=== PATIENT | female | born 1940 | race Caucasian/White ===

== ENCOUNTER 2023-03-20 10:44 | Emergency (ER) | payer MEDICARE, MEDICAID ==
[~2023-03-20] VITALS: Ht 154.9 cm; Wt 66.4 kg
[2023-03-20 11:02] VITALS: BP 121/67
[2023-03-20] MEDS ORDERED: azithromycin 250mg tablet PO ONE (12:20)
[2023-03-20] MEDS ORDERED: AZIT250T2 PO (13:06)
[2023-03-20] MEDS ORDERED: GUAI118S13 PO (13:06)
== END 2023-03-20 13:39 | disposition home or self-care (01) ==
LOC: ER 10:45
DX: J20.9 Acute bronchitis, unspecified (principal); J43.9 Emphysema, unspecified; Z88.2 Allergy status to sulfonamides
CPT/HCPCS: 71046; 99283